=== PATIENT | male | born 1950 | race Caucasian/White ===

== ENCOUNTER 2016-08-31 09:02 | Emergency (ER) | payer MEDICARE, OTHER ==
[2016-08-31 10:14] LABS: ALBUMIN 3.3 gm/dL (3.4-5.0); ALKALINE PHOSPHATASE 73 U/L (50-136); ALT/SGPT 8 U/L (7.53-40.17); AST/SGOT 10 U/L (6.66-35.34); BILIRUBIN,TOTAL 0.52 mg/dL (0.0-1.0); BLOOD UREA NITROGEN 11 mg/dL (7-18); CALCIUM 9.4 mg/dL (8.7-10.7); CARBON DIOXIDE 19 mmol/L (21-32); CREATINE KINASE 21 U/L (35-232); CREATININE 1.1 mg/dL (0.6-1.3); GLUCOSE,RANDOM 229 mg/dL (70-99); POTASSIUM 4.3 mmol/L (3.5-5.1); SODIUM 133 mmol/L (136-145); TOTAL PROTEIN 8.1 gm/dL (6.4-8.2)
[2016-08-31 10:19] LABS: BASO # 0.1 10_X3_uL (0.0-0.1); BASO % 0.2 % (0.2-1.2); GRAN # 41.4 10_X3_uL (1.8-5.4); GRAN % 77.7 % (34.0-67.9); HEMATOCRIT 35.9 % (40-51); HEMOGLOBIN 11.9 g/dL (13.7-17.5); LYMPH # 2.9 10_X3_uL (1.3-3.6); LYMPH % 5.4 % (21.8-53.1); MEAN CORPUSCULAR HEMOGLOBIN 28.8 pg (27.0-33.0); MEAN CORPUSCULAR HGB CONC 33.1 g/dL (32.0-36.0); MEAN CORPUSCULAR VOLUME 86.9 fL (79-92); MEAN PLATELET VOLUME 12.2 fl (7.5-11.5); MONO # 8.9 10_X3_uL (0.3-0.8); MONO % 16.7 % (5.3-12.2); PLATELET COUNT 355 x10_3/uL (163-337); RED BLOOD COUNT 4.13 x10_6/uL (4.6-6.1); RED CELL DISTRIBUTION WIDTH 16.3 % (11.6-14.4)
[2016-08-31 10:26] LABS: WHITE BLOOD COUNT 53.2 x10_3/uL (4.2-9.1)
== END 2016-08-31 12:30 | disposition short-term general hospital (02) ==
LOC: ER 09:02
PROVIDERS: Emergency Medicine
DX: J18.9 Pneumonia, unspecified organism (principal); D72.829 Elevated white blood cell count, unspecified; Z90.81 Acquired absence of spleen; F10.20 Alcohol dependence, uncomplicated; F32.9 Major depressive disorder, single episode, unspecified; D64.9 Anemia, unspecified; I10 Essential (primary) hypertension; K21.9 Gastro-esophageal reflux disease without esophagitis; Z87.891 Personal history of nicotine dependence; R11.2 Nausea with vomiting, unspecified; R19.7 Diarrhea, unspecified; R05 Cough; R06.02 Shortness of breath; Z79.82 Long term (current) use of aspirin; Z79.899 Other long term (current) drug therapy
CPT/HCPCS: 36415; 71020; 80053; 82550; 82553; 83605; 85025; 87040; 87070; 87186; 87205; 93005; 96365; 96366; 96368; 96375; 99070; 99284; 99285-25